=== PATIENT | male | born 1990 | race Caucasian/White ===

== ENCOUNTER → 2016-09-28 | Day surgery (SDC) | payer OTHER ==
[~2016-09-28] MED LIST: Buffered Lidocaine 1% SYR 3ML* 3 ML/SYR SYRINGE INTRADERM ONE; Bupivacaine 0.25% EPI 200,000* 30 ML SDV ONE; Bupivacaine 0.25% SDV* 30 ML ONE; Dexamethasone IV* 4 MG/ML 1 ML (4 MG) ONE; Famotidine IV* 10 MG/ML 2 ML (20 mg) IV ONE; Famotidine IV* 10 MG/ML 2 ML (20 mg) ONE; KETAMINE HCL* 50 MG/ML 10 ML VIAL ONE; Ketorolac INJ* 30 MG/ML 1 ML VIAL IV PRN; Ketorolac INJ* 30 MG/ML 1 ML VIAL ONE; Lidocaine 2% PF * 5 ML VIAL ONE; Midazolam* 1 MG/ML 5 ML VIAL (5 MG) ONE; Morphine INJ* 2 MG/ML 1 ML CARPUJECT IV PRN; Ondansetron INJ* 2 MG/ML VIAL ONE; PROCHLORPERAZINE INJ 5 MG/ML 2 ML VIAL IV PRN; Propofol* 10 MG/ML 20 ML BTL IV PUSH ONE; ceFAZolin 2 GM PREMIX (*) 2 GM/50 ML BAG IVPB ONE; fentaNYL* 50 MCG/ML 2 ML VIAL (100 MCG VIAL) IV PRN; fentaNYL* 50 MCG/ML 2 ML VIAL (100 MCG VIAL) ONE; oxyCODONE/Acetamin 5/325 MG* TAB ONE; oxyCODONE/Acetamin 5/325 MG* TAB PO PRN
[2016-09-28 14:19] VITALS: BP 145/77
--- NOTE | 2016-09-29 04:22 | OP ---
DATE OF OPERATION: 09/28/16 - [facility] DATE OF : 88 SURGEON: Susy Mann MD DIRECTOR PHARMACOVIGILANCE: MINE Garza. An insurance legal assistant was needed for the entirety of the case as this was going to be a possible open case, and was utilized for retraction and utilized throughout all portions of the case. ANESTHESIOLOGIST: Dr. Mayen. ANESTHESIA: General. PRE-OP DIAGNOSIS: Right knee root of the lateral meniscus tear. POST-OP DIAGNOSES: Root of the lateral meniscus, root of the medial meniscus tearing as well as chondrosis along the trochlea. OPERATIVE PROCEDURE: Right knee arthroscopy with partial medial and partial lateral meniscectomy and chondroplasty of the trochlea. COMPLICATIONS: None. ESTIMATED BLOOD LOSS: Minimal. 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 Since that time, he has had catching and locking and mechanical type symptoms. He has failed conservative management and elected to proceed with operative treatment. Risks and benefits of the surgery were discussed at length and included, but are not limited to bleeding, infection, damage to nerves, vessels, surrounding structures, wound nonhealing, persistent pain, need for further surgery, risk of DVT, and risk of anesthesia. He has elected to proceed. DESCRIPTION OF PROCEDURE: The patient was greeted in the preoperative area by the attending surgeon. Correct extremity was marked. Consent was confirmed. The patient was then brought back to the operating suite where he was placed in the supine position on the operating table. He then underwent general anesthesia with LMA intubation which he tolerated without difficulty. A non- sterile tourniquet was placed high on the proximal thigh. The lateral post was placed and after a miniature surgical pause, the knee was intra-articularly injected with 0.25% Marcaine with epi. The right leg was prepped and draped in the usual sterile fashion beginning with a prescrub of chlorhexidine soap and a final prep with ChloraPrep. After appropriate surgical pause indicating side, site, procedure, and administration of antibiotics, the standard daniela-lateral portal was made sharply with an 11 blade. The scope was introduced to the joint and the joint was examined. The patella had grade 0 to 1 changes with small unstable mild fraying inferiorly. The trochlea was intact superiorly, but had a large fissure with an area of unstable flaps, looks like this was at least grade 3 changes, but it was a very narrow line. The medial and lateral gutters were clear without loose debris. The scope was then brought into the notch and the notch was examined. There was ligamentum that was present. The ACL appeared to be intact, but had surrounding erythema. The medial portal was then made using an 18-gauge needle to localize. The shaver was used to remove the excess ligamentum and some of the fat pad and the ACL was examined, it was intact, although it looked erythematous for some reason. The knee was then placed in the medial compartment. The medial femoral condyle and medial tibial plateau had grade 0 changes. The body of the meniscus was intact, but the root had some mild fraying to it. The knee was then placed in figure-of- four position and ACL was visualized, again to be intact. Through this view, the lateral meniscus had some mild fraying at the periphery, but the root specifically was torn. There was an unstable flap, but this did not encompass a good portion of the root insertion. Therefore, it was felt that the root did not require specific repair, instead a biter was used to debride back the small unstable flap and the shaver was used to smooth it down. The shaver was also used to smooth down the mild meniscal fraying on the periphery. The lateral femoral condyle had grade 0 changes. Lateral tibial plateau had grade 1 changes. The knee was then placed in slight extension with valgus stress and the medial compartment was examined again. It was found that there were might be mild tearing of the root as well. At this point, the shaver was used to debride some of this back, although it was quite a tight space. Decision was made to look at the meniscus posteriorly. Therefore, the scope was then carefully placed gently and through the Waelder portal and the posterior aspect of the medial meniscus was examined and found to be intact. There were no loose bodies in the space. At this point, it was felt that the meniscal shaving of the root was felt to be sufficient. There were no other unstable flaps. The remainder of the meniscus was probed and found to be intact. At this point, all fluid and debris was removed from the knee. The trochlea was examined. There were small unstable flaps along the fissure. This fissure was quite deep. The decision was made to take only the unstable flaps and try not to create a larger defect. All fluid and debris was removed from the joint. The portals were closed with 3-0 nylon. The knee was intra-articularly injected with 0.25% Marcaine plain. Sterile dressings were then applied. POST-OPERATIVE PLAN: He will be weightbearing as tolerated. He will be allowed to work on range of motion as tolerated. He will be discharged on pain medication. DVT prophylaxis was considered, but deferred due to no previous, personal, or family history. I will see the patient back in 10 to 14 days. [id number]/[facility] #: [id number] MTDD
== END | disposition home or self-care (01) ==
LOC: OREAST 10:08
PROVIDERS: ATTEND Orthopaedic Surgery
DX: S83.241A Other tear of medial meniscus, current injury, right knee, initial encounter (principal); S83.281A Other tear of lateral meniscus, current injury, right knee, initial encounter; X50.0XXA Overexertion from strenuous movement or load, initial encounter; Y92.9 Unspecified place or not applicable
CPT/HCPCS: 88304; A9270-GY; J0690; J1100; J1885; J2250; J2405; J2704; J3010

== ENCOUNTER 2018-03-29 10:56 | Emergency (ER) | payer OTHER ==
[2018-03-29 11:05] VITALS: BP 136/99
--- NOTE | 2018-03-29 11:38 | UC ---
Skin Complaint HPI - HPI Summary HPI Summary: WAS WEEDING AT [employer] AND THINKS HE MUST HAVE GOTTEN INTO SOMETHING AND HAD AN ALLERGIC REACTION. HAS LEFT FACIAL REDNESS, IRRITATION AND MILD SWELLING. NO EYE INVOLVEMENT/VISUAL DISTURBANCE. NO RESPIRATORY INVOLVEMENT OR TONGUE/LIP SWELLING. - History of Current Complaint Chief Complaint: UCSkin Time Seen by Provider: 03/29/18 11:16 Stated Complaint: EYE ISSUE Hx Obtained From: Patient Onset/Duration: Sudden Onset, Lasting Hours, Still Present Timing: Constant Onset Severity: Moderate Current Severity: Moderate Pain Intensity: 4 Pain Scale Used: 0-10 Numeric Location: Face - left side Character: Pain, Redness Aggravating Factor(s): Touch Alleviating Factor(s): Cold Compresses Associated Signs & Symptoms: Positive: Rash, Tenderness Related History: Possible Reaction to: Environmental Exposure - Allergy/Home Medications Allergies/Adverse Reactions: Allergies Allergy/AdvReac Type Severity Reaction Status Date / Time No Known Allergies Allergy Verified 03/29/18 11:05 Review of Systems Constitutional: Negative Skin: Rash Eyes: Negative Respiratory: Negative Cardiovascular: Negative Gastrointestinal: Negative All Other Systems Reviewed And Are Negative: Yes PMH/Surg Hx/FS Hx/Imm Hx Previously Healthy: Yes - Surgical History Surgical History: None Surgery Procedure, Year, and Place: right knee surgery - Family History Known Family History: Positive: Hypertension, Respiratory Disease - Social History Alcohol Use: None Substance Use Type: None Substance Use Comment - Amount & Last Used: rarely Smoking Status (MU): Never Smoked Tobacco Physical Exam Triage Information Reviewed: Yes Appearance: Well-Appearing, No Pain Distress, Well-Nourished Vital Signs: Initial Vital Signs Temp 98 F 03/29/18 11:01 Pulse 91 03/29/18 11:01 Resp 18 03/29/18 11:01 BP 136/99 03/29/18 11:01 Pulse Ox 100 03/29/18 11:01 Vital Signs Reviewed: Yes Eyes: Positive: Conjunctiva Clear, Other: - PERRL, EOMI ENT Exam: Normal ENT: Positive: Hearing grossly normal, Pharynx normal, TMs normal Neck: Positive: Supple Respiratory: Positive: No respiratory distress, No accessory muscle use Cardiovascular: Positive: Pulses Normal Abdomen Description: Positive: Soft Musculoskeletal: Positive: No Edema Neurological: Positive: Alert Psychological: Positive: Age Appropriate Behavior Skin: Positive: Other - LEFT FOREHEAD, PERIORBITALLY, CHEEK WITH ERYTHEMA AND SLIGHT SOFT TISSE SWELLING. TTP. NO EXCORIATION OR DRAINAGE. Course/Dx - Course Course Of Treatment: PT FEELS MUCH BETTER AFTER WASHING FACE WITH COOL WATER. DENIES ANY RESPIRATORY DIFFICULTY OR VISUAL DISTURBANCE. WILL TREAT CONTACT DERMATITIS. - Diagnoses Provider Diagnoses: ALLERGIC CONTACT DERMATITIS Discharge - Sign-Out/Discharge Documenting (check all that apply): Discharge/Admit/Transfer - Discharge Plan Condition: Stable Disposition: HOME Prescriptions: Triamcinolone 0.1% CREAM(NF) [Kenalog Cream 0.1%(NF)] 1 applic TOPICAL TID PRN # 1 tube PRN Reason: Itching Patient Education Materials: Contact Dermatitis (ED) Forms: *Work Release Referrals: Dustin Rodriguez MD [Medical Doctor] - If Needed Additional Instructions: AVOID HEAT AND HOT WATER TAKE OTC ANTIHISTAMINE DAILY (CLARITIN (LORATADINE), ZYRTEC (CETIRIZINE) OR GOSIA (FEXOFENADINE) IN THE MORNING, 25-50MG BENADRYL AT NIGHT) DO NOT SCRATCH KEEP COOL, CLEAN AND DRY USE TOPICAL STEROID SPARINGLY 2-3 TIMES DAILY ON ITCHY SPOTS. KEEP AWAY FROM MUCOUS MEMBRANES. GO TO THE ED WITHOUT FAIL IF YOU DEVELOP TONGUE/LIP SWELLING, RESPIRATORY DIFFICULTY, FEVER, NAUSEA OR ANY OTHER CONCERNING SYMPTOMS. GO TO AN EYE DOCTOR IMMEDIATELY IF YOU DEVELOP ANY VISUAL DISTURBANCE, EYE REDNESS, EYE PAIN. CALL THE NUMBER BELOW FOR ASSISTANCE IN ESTABLISHING WITH A PCP An additional resource available to assist in finding the appropriate physician for your health care needs is the [facility] (Shireen Levin). You may contact them by calling [phone]. - Billing Disposition and Condition Condition: STABLE Disposition: Home
[2018-03-29] MEDS ORDERED: LoraTADine TAB(NF) 10 MG TAB (AUTOSUB to CETIRIZINE) PO ONE (11:40)
== END 2018-03-29 12:02 | disposition home or self-care (01) ==
LOC: UCEAST 10:56
DX: L23.9 Allergic contact dermatitis, unspecified cause (principal)
CPT/HCPCS: 99212; A9270-GY; G0463

== ENCOUNTER 2019-11-22 15:06 | Emergency (ER) | payer SELFPAY ==
--- NOTE | 2019-11-22 15:22 | UC ---
Shortness of Breath HPI - HPI Summary HPI Summary: 29 yo comes for assessment for cough progressing to shortness of breath. 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 He felt dizzy and lightheaded for a couple of hours. He has some tightness in the chest off and on. lasts for about 10 minutes, mild dizziness, and voices anxiety and worry about this. Slept fine, felt well this morning and hiked, but had recurrent symptoms when he went back into the barn to work. He has a hx of anxiety and used to take clonazepam. Currently he uses markjuana to decrease anxiety. Recently had a well check with Dr. Butler and was not advised of any concerns; believes that his blood pressure was normal. FH: father of gastric ulcer, mother living and well, PGF might have heart disease--no hx of early CAD. No substances aside from marijuana. - History of Current Complaint Stated Complaint: SHORTNESS OF BREATH Time Seen by Provider: 11/22/19 15:21 Hx Obtained From: Patient Onset/Duration: Sudden Onset, Lasting Hours Current Severity: Mild Dyspnea At: Rest Aggravating Factors: Deep Breaths Alleviating Factors: Nothing Associated Signs & Symptoms: Negative: Cough (Productive), Cough (Nonproductive) , Chest Pain w/Cough, Chills, Diaphoresis, Nasal Congestion - Allergy/Home Medications Allergies/Adverse Reactions: Allergies Allergy/AdvReac Type Severity Reaction Status Date / Time No Known Allergies Allergy Verified 11/22/19 15:23 Home Medications: Home Medications Ibuprofen TAB* [Advil TAB*] 2 tab PO Q4H PRN 08/03/16 [History Confirmed ] Triamcinolone 0.1% CREAM(NF) [Kenalog Cream 0.1%(NF)] 1 applic TOPICAL TID PRN # 1 tube 03/29/18 [Rx] PMH/Surg Hx/FS Hx/Imm Hx Previously Healthy: Yes Psychological History: Anxiety - hx of anxiety, treated in past with clonazepam. - Surgical History Surgical History: None Surgery Procedure, Year, and Place: right knee surgery - Family History Known Family History: Positive: Cardiac Disease - PGF, Respiratory Disease - Social History Occupation: Unemployed - currently off work Lives: Alone Alcohol Use: None Substance Use Type: None Substance Use Comment - Amount & Last Used: rarely Smoking Status (MU): Never Smoked Tobacco Review of Systems All Other Systems Reviewed And Are Negative: Yes Constitutional: Positive: Negative Skin: Positive: Negative Eyes: Positive: Negative ENT: Positive: Negative Respiratory: Positive: Shortness Of Breath Cardiovascular: Positive: Palpitations, Chest Pain - sense of tightness. Gastrointestinal: Positive: Negative Genitourinary: Positive: Negative Motor: Positive: Negative Neurovascular: Positive: Negative Musculoskeletal: Positive: Negative Neurological/Mental Status: Positive: Negative Psychological: Positive: Anxious - feels under a lot of stress at this time. Is Patient Immunocompromised?: No Physical Exam Triage Information Reviewed: Yes Appearance: Well-Appearing, No Pain Distress, Other: - anxious Vital Signs Reviewed: Yes Eye Exam: Normal Eyes: Positive: Conjunctiva Clear ENT: Positive: Pharynx normal Neck: Positive: Supple, Nontender, No Lymphadenopathy Respiratory: Positive: Lungs clear, Normal breath sounds Cardiovascular Exam: Other - repeat blood pressure of 180/90, rate 80 Cardiovascular: Positive: RRR, No Murmur Abdomen Description: Positive: Nontender, No Organomegaly, Soft Musculoskeletal Exam: Normal Neurological: Positive: Alert, Muscle Tone Normal Psychological Exam: Other - admits to feeling anxious Skin Exam: Normal Diagnostics - EKG Cardiac Rate: NL Cardiac Rhythm: Sinus: Normal Ectopy: None ST Segment: Normal, Other - poor anterior r wave progression. Shortness of Breath Dx - Course Course Of Treatment: Offered ER for further work up but he declines at this time. Advised concern about today's elevated blood pressure and need for follow up regarding anxiety - Differential Dx/Diagnosis Differential Diagnosis/HQI/PQRI: Asthma, Chest Wall Pain, Other - anxiety Provider Diagnosis: Shortness of breath, Elevated blood pressure reading in office without diagnosis of hypertension Discharge ED - Sign-Out/Discharge Documenting (check all that apply): Patient Departure All imaging exams completed and their final reports reviewed: No Studies - Discharge Plan Condition: Stable Disposition: HOME Patient Education Materials: Shortness of Breath (ED) Referrals: No Primary Care Phys,NOPCP [Primary Care Provider] - [facility] [Outside] [facility]QUE[facility] [Outside] Additional Instructions: IF YOU CONTINUE TO HAVE SYMPTOMS OF SHORTNESS OF BREATH, PLEASE CALL PROCEED TO THE EMERGENCY ROOM FOR EVALUATION BY AMBULANCE. It is important that you follow up your elevated blood pressure withiin 1-2 days. Youcould follow up with Dr. Parekh, or use our [facility] clinic. Ensure adequate rest, and, as discussed, you would like to find some help with anxiety. Follow up is important, and persistent or worsening symptoms should prompt a visit to the emergency room. - Billing Disposition and Condition Condition: STABLE Disposition: Home
[2019-11-22 16:24] VITALS: BP 180/90
== END 2019-11-22 16:50 | disposition home or self-care (01) ==
LOC: UCEAST 15:06
DX: I10 Essential (primary) hypertension (principal); R06.02 Shortness of breath; R05 Cough; F41.9 Anxiety disorder, unspecified; Z79.899 Other long term (current) drug therapy
CPT/HCPCS: 99211; G0463